=== PATIENT | male | born 1975 | race Two or more races ===

== ENCOUNTER → 2021-04-22 12:10 | Outpatient (CLI) | payer OTHER | END | disposition home or self-care (01) | LOC: PPH VACUNA 12:10 | PROVIDERS: ATTEND Emergency Medicine Pediatric Emergency Medicine | DX: Z23 Encounter for immunization (principal) ==

== ENCOUNTER 2021-07-07 09:00 | Outpatient (CLI) | payer OTHER | END 2021-07-07 09:15 | disposition home or self-care (01) | LOC: PPH VACUNA 09:00 | PROVIDERS: ATTEND Emergency Medicine Pediatric Emergency Medicine | DX: Z23 Encounter for immunization (principal) ==

== ENCOUNTER → 2022-02-07 | Outpatient (CLI) | payer OTHER | END | disposition home or self-care (01) | LOC: LAB 11:38 | PROVIDERS: ATTEND General Practice | DX: Z20.822 Contact with and (suspected) exposure to COVID-19 (principal) ==

== ENCOUNTER 2022-04-06 10:27 | Outpatient (CLI) | payer OTHER | END 2022-04-06 10:32 | disposition home or self-care (01) | LOC: PPH VACUNA 10:27 | PROVIDERS: ATTEND Emergency Medicine Pediatric Emergency Medicine | DX: Z23 Encounter for immunization (principal) ==

== ENCOUNTER 2023-03-24 09:00 | Outpatient (CLI) | payer OTHER | END 2023-03-24 09:10 | disposition home or self-care (01) | LOC: PPH VACUNA 09:00 | PROVIDERS: ATTEND Emergency Medicine Pediatric Emergency Medicine | DX: Z23 Encounter for immunization (principal) | CPT/HCPCS: 90686; G0008 ==

== ENCOUNTER 2023-05-26 08:05 | Outpatient (CLI) | payer OTHER | END 2023-05-26 14:27 | disposition home or self-care (01) | LOC: LAB 08:05 | PROVIDERS: ATTEND General Practice | DX: Z11.0 Encounter for screening for intestinal infectious diseases (principal); Z11.52 Encounter for screening for COVID-19; Z20.828 Contact with and (suspected) exposure to other viral communicable diseases; R50.9 Fever, unspecified; J11.1 Influenza due to unidentified influenza virus with other respiratory manifestations ==

== ENCOUNTER 2024-03-15 08:52 | Outpatient (CLI) | payer OTHER | END 2024-03-15 08:55 | disposition home or self-care (01) | LOC: TOM 08:52 | PROVIDERS: ATTEND General Practice | DX: K62.89 Other specified diseases of anus and rectum (principal) ==

== ENCOUNTER 2024-03-26 08:43 | Outpatient (CLI) | payer OTHER ==
[2024-03-26 10:22] LABS: HEMATOCRIT 41.3 % (39.0-48.0); HEMOGLOBIN 14.2 g/dL (13-16.00); MEAN CELL VOLUME 83.1 fL (80.0-100.00); MEAN CORPUSCULAR HEMOGLOBIN 28.5 pg (27.00-32.0); MEAN CORPUSCULAR HGB CONC 34.3 g/dl (32.0-36.0); PLATELET COUNT 165 K/uL (150-450); RED BLOOD COUNT 4.97 M/uL (4.00-6.00); RED CELL DISTRIBUTION WIDTH 13.8 % (11.5-14.5)
[2024-03-26 10:47] LABS: ERYTHROCYTE SEDIMENTATION RATE 3 mm/hr
== END 2024-03-26 10:03 | disposition home or self-care (01) ==
LOC: LAB 08:43
DX: K57.32 Diverticulitis of large intestine without perforation or abscess without bleeding (principal); K57.92 Diverticulitis of intestine, part unspecified, without perforation or abscess without bleeding

== ENCOUNTER 2024-04-18 10:55 | Outpatient (CLI) | payer OTHER | END 2024-04-18 12:00 | disposition home or self-care (01) | LOC: PPH VACUNA 10:55 | PROVIDERS: ATTEND Emergency Medicine Pediatric Emergency Medicine | DX: Z23 Encounter for immunization (principal) ==

== ENCOUNTER 2024-04-18 12:34 | Outpatient (CLI) | payer OTHER | END 2024-04-18 12:39 | disposition home or self-care (01) | LOC: RAD 12:34 | PROVIDERS: ATTEND Emergency Medicine | DX: R53.83 Other fatigue (principal) ==

== ENCOUNTER 2024-05-01 08:26 | Outpatient (CLI) | payer OTHER ==
[2024-05-01 09:23] LABS: HEMATOCRIT 43.8 % (39.0-48.0); HEMOGLOBIN 14.6 g/dL (13-16.00); MEAN CELL VOLUME 85.1 fL (80.0-100.00); MEAN CORPUSCULAR HEMOGLOBIN 28.4 pg (27.00-32.0); MEAN CORPUSCULAR HGB CONC 33.4 g/dl (32.0-36.0); PLATELET COUNT 167 K/uL (150-450); RED BLOOD COUNT 5.15 M/uL (4.00-6.00)
[2024-05-01 10:18] LABS: BILIRUBIN TOTAL 0.48 mg/dL (0.3-1.2); CALCIUM 8.6 mg/dL (8.5-10.1); CHOL HDL RATIO 5.2 (0-5.0); CREATININE SERUM 1.02 mg/dL (0.70-1.30); GFR 78.63; GLOBULINA 3.4 G/DL (2.4-3.5); POTASSIUM 4.14 mEq/L (3.5-5.1); PROSTATIC SPECIFIC ANTIGEN 1.15 NG/ML (0.010-4.00); T4 FREE 0.95 NG/ML (0.76-1.46); TOTAL PROTEIN 7.4 gm/dL (6.4-8.2); TSH 2.99 uIU/mL (0.358-3.74)
[2024-05-01 10:39] LABS: URINE APPEARANCE Clear; URINE BILIRRUBIN Negative (NEGATIVE); URINE BLOOD Negative; URINE COLOR Yellow; URINE GLUCOSE Negative (NEGATIVE); URINE KETONE Negative (NEGATIVE); URINE LEUKOCYTE Negative; URINE NITRATE Negative; URINE PROTEIN Negative (NEGATIVE); URINE UROBILINOGEN 0.2 E.U./dl
[2024-05-01 10:49] LABS: URINE RBC 1.6 uL (0.0-20.8); URINE WBC 0.6 uL (0.0-23.2)
== END 2024-05-01 08:30 | disposition home or self-care (01) ==
LOC: LAB 08:26
PROVIDERS: ATTEND Specialist
DX: E03.8 Other specified hypothyroidism (principal); E11.65 Type 2 diabetes mellitus with hyperglycemia; E55.9 Vitamin D deficiency, unspecified; E78.00 Pure hypercholesterolemia, unspecified; I11.9 Hypertensive heart disease without heart failure; M81.0 Age-related osteoporosis without current pathological fracture; Z12.11 Encounter for screening for malignant neoplasm of colon; E11.9 Type 2 diabetes mellitus without complications; N40.0 Benign prostatic hyperplasia without lower urinary tract symptoms; E03.9 Hypothyroidism, unspecified

== ENCOUNTER → 2024-06-06 08:34 | Outpatient (CLI) | payer OTHER | END | disposition home or self-care (01) | LOC: SONOGRAMA 08:34 | PROVIDERS: ATTEND Specialist | DX: N23 Unspecified renal colic (principal) ==

== ENCOUNTER 2024-09-09 07:44 | Outpatient (CLI) | payer OTHER ==
[2024-09-09 09:12] LABS: HEMATOCRIT 43.9 % (39.0-48.0); HEMOGLOBIN 14.9 g/dL (13-16.00); MEAN CELL VOLUME 83.5 fL (80.0-100.00); MEAN CORPUSCULAR HEMOGLOBIN 28.3 pg (27.00-32.0); MEAN CORPUSCULAR HGB CONC 33.9 g/dl (32.0-36.0); PLATELET COUNT 175 K/uL (150-450); RED BLOOD COUNT 5.26 M/uL (4.00-6.00); RED CELL DISTRIBUTION WIDTH 13.9 % (11.5-14.5)
[2024-09-09 09:14] LABS: PH,URINE 6.5 (5.0-8.0); URINE APPEARANCE Clear; URINE BILIRRUBIN Negative (NEGATIVE); URINE BLOOD Negative; URINE COLOR Yellow; URINE GLUCOSE Negative (NEGATIVE); URINE KETONE Negative (NEGATIVE); URINE LEUKOCYTE Negative; URINE NITRATE Negative; URINE PROTEIN Negative (NEGATIVE); URINE UROBILINOGEN 0.2 E.U./dl
[2024-09-09 09:18] LABS: URINE BACTERIA 24.3 uL (0.0-1933)
[2024-09-09 09:34] LABS: URINE EPITHELIAL CELLS 0.7 uL (0.0-38.8); URINE RBC 1.1 uL (0.0-20.8); URINE WBC 0.6 uL (0.0-23.2)
[2024-09-09 10:24] LABS: ALBUMIN 3.9 gm/dL (3.4-5.0); BILIRUBIN TOTAL 0.48 mg/dL (0.3-1.2); CALCIUM 9.2 mg/dL (8.5-10.1); CHOL HDL RATIO 4.7 (0-5.0); CREATININE SERUM 0.96 mg/dL (0.70-1.30); GFR 83.96; GLOBULINA 3.3 G/DL (2.4-3.5); POTASSIUM 4.29 mEq/L (3.5-5.1); PROSTATIC SPECIFIC ANTIGEN 1.26 NG/ML (0.010-4.00); T4 FREE 0.9 NG/ML (0.76-1.46); TOTAL PROTEIN 7.2 gm/dL (6.4-8.2); TSH 3.16 uIU/mL (0.358-3.74)
[2024-09-09 13:55] LABS: ob NEGATIVE (NEGATIVE)
== END 2024-09-09 15:14 | disposition home or self-care (01) ==
LOC: LAB 07:44
PROVIDERS: ATTEND Specialist
DX: E03.8 Other specified hypothyroidism (principal); E11.65 Type 2 diabetes mellitus with hyperglycemia; E55.9 Vitamin D deficiency, unspecified; E78.00 Pure hypercholesterolemia, unspecified; I11.9 Hypertensive heart disease without heart failure; M81.0 Age-related osteoporosis without current pathological fracture; Z12.11 Encounter for screening for malignant neoplasm of colon; Z11.9 Encounter for screening for infectious and parasitic diseases, unspecified; N40.0 Benign prostatic hyperplasia without lower urinary tract symptoms; E03.9 Hypothyroidism, unspecified

== ENCOUNTER 2024-09-09 09:45 | Outpatient (CLI) | payer OTHER | END 2024-09-09 10:02 | disposition home or self-care (01) | LOC: TOM 09:45 | PROVIDERS: ATTEND Specialist | DX: M54.16 Radiculopathy, lumbar region (principal); R10.32 Left lower quadrant pain; R10.11 Right upper quadrant pain ==

== ENCOUNTER 2024-09-27 08:01 | Outpatient (CLI) | payer OTHER | END 2024-09-27 08:02 | disposition home or self-care (01) | LOC: NUCLEAR 08:01 | PROVIDERS: ATTEND Internal Medicine | DX: I11.9 Hypertensive heart disease without heart failure (principal); R06.00 Dyspnea, unspecified ==

== ENCOUNTER 2024-10-18 07:36 | Outpatient (CLI) | payer OTHER ==
[2024-10-18 09:06] LABS: CHOL HDL RATIO 4.1 (0-5.0)
== END 2024-10-18 07:42 | disposition home or self-care (01) ==
LOC: LAB 07:36
PROVIDERS: ATTEND Specialist
DX: E78.2 Mixed hyperlipidemia (principal)

== ENCOUNTER 2024-11-20 08:41 | Outpatient (CLI) | payer OTHER | END 2024-11-20 08:44 | disposition home or self-care (01) | LOC: MRI 08:41 | PROVIDERS: ATTEND Specialist | DX: M47.898 Other spondylosis, sacral and sacrococcygeal region (principal); M54.16 Radiculopathy, lumbar region; M54.50 Low back pain, unspecified | CPT/HCPCS: 72148 ==

== ENCOUNTER 2025-01-16 07:33 | Outpatient (CLI) | payer OTHER ==
[~2025-01-16 07:33] MED LIST: NABUMETONE750 MG PO
[2025-01-16 08:20] LABS: URINE APPEARANCE Clear; URINE BILIRRUBIN Negative (NEGATIVE); URINE BLOOD Negative; URINE COLOR Yellow; URINE GLUCOSE Negative (NEGATIVE); URINE KETONE Negative (NEGATIVE); URINE LEUKOCYTE Negative; URINE NITRATE Negative; URINE PROTEIN Negative (NEGATIVE); URINE UROBILINOGEN 1.0 E.U./dl
[2025-01-16 08:21] LABS: BASO % 0.7 % (0.1-1.2); EOS # 3.15 (0.04-0.54); LYMPH # 2.46 (1.18-3.74); LYMPH % 26.8 % (19.3-53.1); MEAN PLATELET VOLUME 11.10 fl (9.4-12.4); MONO # 0.89 (0.24-0.82); MONO % 9.7 % (4.7-12.5); NEUT # 2.62 (1.56-6.13); NEUT % 28.4 % (34.0-71.1); RED CELL DISTRIBUTION WIDTH 12.5 % (11.6-14.4)
[2025-01-16 08:24] LABS: URINE BACTERIA 15.5 uL (0.0-1933); URINE EPITHELIAL CELLS 4.5 uL (0.0-38.8); URINE RBC 3.0 uL (0.0-20.8); URINE WBC 4.5 uL (0.0-23.2)
[2025-01-16 09:04] LABS: EOS % 34.3 % (0.7-7.0)
[2025-01-16 09:05] LABS: EOSINOPHIL MAN 44.0 %; LYMPHOCYTE MAN 32.0 %; NEUTROPHILS MAN 24.0 %
[2025-01-16 09:09] LABS: URINE CAST 0.29 uL (0.0-1.40)
[2025-01-16 09:27] LABS: ALT/SGPT 35.0 U/L (12-78); AST/SGOT 17.0 U/L (15-37); BILIRUBIN TOTAL 0.56 mg/dL (0.3-1.2); BUN CREA RATIO 11.0 (7.0-25.0); CHOL HDL RATIO 3.4 (0-5.0); CREATININE SERUM 1.26 mg/dL (0.70-1.30); GFR 61.34; GLOBULINA 3.1 G/DL (2.4-3.5); GLUCOSE FASTING 79.0 mg/dL (65-100); HDL 43.0 mg/dl (40-60); LDL 81.0 mg/dl (0-130); OSMOLALITY SERUM 279.0 MOSM/KG (275-295); PROSTATIC SPECIFIC ANTIGEN 1.38 NG/ML (0.010-4.00); T4 FREE 1.44 NG/ML (0.76-1.46); TSH 2.5 uIU/mL (0.358-3.74); VLDL 23.0 (0-39)
[2025-01-16 12:22] LABS: ob NEGATIVE (NEGATIVE)
== END 2025-01-16 07:47 | disposition home or self-care (01) ==
LOC: LAB 07:33
PROVIDERS: ATTEND Specialist
DX: E03.8 Other specified hypothyroidism (principal); E11.65 Type 2 diabetes mellitus with hyperglycemia; E55.9 Vitamin D deficiency, unspecified; E78.00 Pure hypercholesterolemia, unspecified; M81.0 Age-related osteoporosis without current pathological fracture; I11.9 Hypertensive heart disease without heart failure; Z12.11 Encounter for screening for malignant neoplasm of colon; N40.0 Benign prostatic hyperplasia without lower urinary tract symptoms; E03.9 Hypothyroidism, unspecified

== ENCOUNTER 2025-04-22 07:19 | Outpatient (CLI) | payer OTHER ==
[2025-04-22 07:58] LABS: BASO % 0.7 % (0.1-1.2); EOS # 0.27 (0.04-0.54); EOS % 4.0 % (0.7-7.0); LYMPH # 2.58 (1.18-3.74); LYMPH % 38.3 % (19.3-53.1); MEAN PLATELET VOLUME 11.20 fl (9.4-12.4); MONO # 0.67 (0.24-0.82); MONO % 9.9 % (4.7-12.5); NEUT # 3.16 (1.56-6.13); NEUT % 47.0 % (34.0-71.1); RED CELL DISTRIBUTION WIDTH 12.8 % (11.6-14.4)
[2025-04-22 08:40] LABS: BUN CREA RATIO 17.0 (7.0-25.0); CREATININE SERUM 1.15 mg/dL (0.70-1.30); GFR 68.16; GLUCOSE FASTING 92.0 mg/dL (65-100); OSMOLALITY SERUM 281.0 MOSM/KG (275-295)
== END 2025-04-22 08:06 | disposition home or self-care (01) ==
LOC: LAB 07:19
PROVIDERS: ATTEND Specialist
DX: N18.2 Chronic kidney disease, stage 2 (mild) (principal); D64.9 Anemia, unspecified

== ENCOUNTER 2025-04-22 13:43 | Outpatient (CLI) | payer OTHER | END 2025-04-22 13:44 | disposition home or self-care (01) | LOC: SONOGRAMA 13:43 | PROVIDERS: ATTEND Specialist | DX: R10.9 Unspecified abdominal pain (principal) ==

== ENCOUNTER 2025-04-29 12:06 | Outpatient (CLI) | payer OTHER ==
[2025-04-29 12:38] LABS: BASO % 0.5 % (0.1-1.2); EOS # 0.07 (0.04-0.54); EOS % 0.8 % (0.7-7.0); LYMPH # 2.14 (1.18-3.74); LYMPH % 25.7 % (19.3-53.1); MEAN PLATELET VOLUME 10.90 fl (9.4-12.4); MONO # 0.72 (0.24-0.82); MONO % 8.7 % (4.7-12.5); NEUT # 5.33 (1.56-6.13); NEUT % 64.1 % (34.0-71.1); RED CELL DISTRIBUTION WIDTH 12.6 % (11.6-14.4)
[2025-04-29 13:22] LABS: ALT/SGPT 37.0 U/L (12-78); AST/SGOT 15.0 U/L (15-37); BILIRUBIN TOTAL 0.26 mg/dL (0.3-1.2); BUN CREA RATIO 13.0 (7.0-25.0); CHOL HDL RATIO 3.2 (0-5.0); CREATININE SERUM 1.14 mg/dL (0.70-1.30); GFR 68.85; GLOBULINA 3.0 G/DL (2.4-3.5); GLUCOSE FASTING 96.0 mg/dL (65-100); HDL 47.0 mg/dl (40-60); LDL 90.0 mg/dl (0-130); OSMOLALITY SERUM 280.0 MOSM/KG (275-295); TSH 2.76 uIU/mL (0.358-3.74); VLDL 13.0 (0-39)
== END 2025-04-29 23:00 | disposition home or self-care (01) ==
LOC: LAB 12:06
PROVIDERS: ATTEND Internal Medicine
DX: I11.9 Hypertensive heart disease without heart failure (principal); E78.2 Mixed hyperlipidemia; E03.9 Hypothyroidism, unspecified; E11.9 Type 2 diabetes mellitus without complications

== ENCOUNTER 2025-04-30 11:00 | Outpatient (CLI) | payer OTHER | END 2025-04-30 11:10 | disposition home or self-care (01) | LOC: PPH VACUNA 11:00 | PROVIDERS: ATTEND Emergency Medicine Pediatric Emergency Medicine | DX: Z23 Encounter for immunization (principal) ==

== ENCOUNTER 2025-05-26 15:10 | Outpatient (CLI) | payer OTHER | END 2025-05-26 15:11 | disposition home or self-care (01) | LOC: TOM 15:10 | PROVIDERS: ATTEND Otolaryngology Otology & Neurotology | DX: J30.89 Other allergic rhinitis (principal) ==